=== PATIENT | male | born 1995 | race Caucasian/White ===

== ENCOUNTER 2019-10-20 23:18 | Emergency (ER) | payer SELFPAY ==
[~2019-10-20] VITALS: Ht 170.2 cm; Wt 67.1 kg
[2019-10-20 23:20] VITALS: BP 150/90
--- NOTE | 2019-10-20 23:23 | NUR ---
TO LOBBY A/W BED AMBULATORY
--- NOTE | 2019-10-21 | NUR ---
PT TAKEN TO BED 8
--- NOTE | 2019-10-21 00:10 | NUR ---
24 YO MALE CO DIZZINESS, NAUSEA AND RAPID HEART RATE TODAY AFTER WAKING FROM A NAP. 3 LEAD EKG SHOWS TACHYCARDIA BETWEEN 120-130. PT STATED THAT HE HAD A RULL BULL AND A COUPLE BEERS TODAY. NO ABNORMAL HEART SOUNDS ON AUSCULTATION.
[2019-10-21] MEDS ORDERED: NACL 0.9% 1,000 ML IV ONE (00:25)
[2019-10-21 01:39] VITALS: BP 150/90
--- NOTE | 2019-10-21 01:40 | NUR ---
Patient discharged with v/s stable. Written and verbal after care instructions given and explained. Patient verbalized understanding. Ambulatory with steady gait. All questions addressed prior to discharge. Advised to follow up with PMD.
--- NOTE | 2019-10-22 10:37 | NUR ---
Late entry. Confirmed with RN that 0.9NS IV completed at 0135
== END 2019-10-21 01:40 | disposition home or self-care (01) ==
LOC: MED 23:18
DX: R00.0 Tachycardia, unspecified (principal); R03.0 Elevated blood-pressure reading, without diagnosis of hypertension; J45.909 Unspecified asthma, uncomplicated; Z88.0 Allergy status to penicillin
CPT/HCPCS: 93005; 99283; J7030

== ENCOUNTER 2019-10-21 22:13 | Emergency (ER) | payer SELFPAY ==
[~2019-10-21] VITALS: Ht 170.2 cm; Wt 67.1 kg
[2019-10-21 22:25] VITALS: BP 144/82
--- NOTE | 2019-10-21 22:27 | NUR ---
TO LOBBY A/W BED AMBULATORY
--- NOTE | 2019-10-21 22:39 | NUR ---
PT AMBULATED TO BED 5.
--- NOTE | 2019-10-21 22:40 | NUR ---
PT 24 Y/O MALE BIB SELF FOR C/O 4/10 STERNAL CHEST PAIN X 1 DAY. NON RADIATING, "FEELS LIKE A PRESSURE." PT ALSO HAS C/O DIARRHEA. "JOHANNA BEEN HAVING IT ALL DAY, EVERYTIME I EAT I HAVE TO GO TO THE BATHROOM." PT RESPIRATIONS ARE EVEN AND UNLABORED. AFEBRILE. SKIN IS WARM AND DRY TO TOUCH. BS PRESENT X 4. ABD SOFT, FLAT, AND NON TENDER. PT ON MONITOR. BED LOCKED AND IN LOWEST POSITION. MEDHX: ASTHMA ALLERGIES: PCN
--- NOTE | 2019-10-21 22:45 | NUR ---
IV PLACED IN L AC 20G. LABS DRAWN.
--- NOTE | 2019-10-21 22:49 | NUR ---
EKG DONE AT BEDSIDE BY CONNOR GREWAL.
[2019-10-21] MEDS ORDERED: NACL 0.9% 1,000 ML IV ONE (22:50)
--- NOTE | 2019-10-21 22:52 | NUR ---
XRAY AT BEDSIDE.
--- NOTE | 2019-10-21 22:55 | NUR ---
DR US AT BEDSIDE.
--- NOTE | 2019-10-21 22:55 | NUR ---
PT IVF NS 0.9% BOLUS STARTED. IV SITE IS PATENT. NO SWELLING OR C/O PAIN AT THIS TIME. IVF RUNNING CONTINOUSLY.
[2019-10-21 23:05] LABS: BASOPHILS % (AUTO) 0.6 % (0.0-2.0); EOSINOPHILS # (AUTO) 0.1 K/uL (0-0.4); EOSINOPHILS % (AUTO) 1.7 % (0.0-4.0); HEMATOCRIT 49.1 % (36-52); LYMPHOCYTES # (AUTO) 1.7 K/uL (2.0-11.5); LYMPHOCYTES % (AUTO) 25.2 % (20.5-51.1); MEAN CORPUSCULAR HEMOGLOBIN 31 pg (27-31); MEAN CORPUSCULAR HGB CONC 35 g/dL (33-37); MEAN CORPUSCULAR VOLUME 88.5 fL (80-94); MONOCYTES # (AUTO) 0.5 K/uL (0.8-1.0); MONOCYTES % (AUTO) 7.2 % (1.7-9.3); NEUTROPHILS # (AUTO) 4.5 K/uL (1.8-7.7); NEUTROPHILS % (AUTO) 65.3 % (42.2-75.2); PLATELET COUNT (AUTO) 209 K/uL (140-450); RED BLOOD CELL COUNT(AUTO) 5.55 MIL/uL (4.20-6.10); RED CELL DISTRIBUTION WIDTH 13.2 % (11.6-13.7); WHITE BLOOD COUNT (AUTO) 6.9 K/uL (4.8-10.8)
[2019-10-21 23:19] LABS: ALBUMIN 4.7 g/dL (3.4-5.0); ANION GAP 16.4 (8-16); CARBON DIOXIDE 26.3 mmol/L (21-32); POTASSIUM 3.7 mmol/L (3.5-5.1); TOTAL BILIRUBIN 0.6 mg/dL (0.0-1.0)
[2019-10-21 23:26] LABS: PROTHROMBIN TIME 10.1 secs (10.8-13.4)
--- NOTE | 2019-10-22 00:15 | NUR ---
PT IVF FINISHED. NO SWELLING OR C/O PAIN AT IV SITE. PT AMBULATED TO RESTROOM WITH STEADY GAIT. PT STATES PAIN IS 0/10. "I FEEL A LOT BETTER."
[2019-10-22 01:35] VITALS: BP 117/86
== END 2019-10-22 01:35 | disposition home or self-care (01) ==
LOC: MED 22:13
DX: R07.89 Other chest pain (principal); R00.2 Palpitations; J45.909 Unspecified asthma, uncomplicated; Z88.0 Allergy status to penicillin
CPT/HCPCS: 36415; 71045; 80053; 83880; 84484; 85025; 85610; 85730; 93005; 96360; 99284; J7030; Q0092

== ENCOUNTER 2019-11-29 16:42 | Emergency (ER) | payer SELFPAY ==
[~2019-11-29] VITALS: Ht 172.7 cm; Wt 69.4 kg
[2019-11-29 17:01] VITALS: BP 134/80
[2019-11-29] MEDS ORDERED: ALUMINUM HYD/MAG/SIMETHICONE 30 ML UDC PO ONE (17:20)
[2019-11-29] MEDS ORDERED: LIDOCAINE VISCOUS 2% 20 ML UDC PO ONE (17:20)
[2019-11-29] MEDS ORDERED: DICYCLOMINE HCL LIQUID 10 MG/5 ML UDC PO ONE (17:20)
[2019-11-29 17:54] VITALS: BP 134/80
== END 2019-11-29 17:54 | disposition home or self-care (01) ==
LOC: MED 16:42
DX: K21.9 Gastro-esophageal reflux disease without esophagitis (principal); J45.909 Unspecified asthma, uncomplicated; F17.200 Nicotine dependence, unspecified, uncomplicated; F12.90 Cannabis use, unspecified, uncomplicated; Z98.890 Other specified postprocedural states; Z88.0 Allergy status to penicillin
CPT/HCPCS: 99283

== ENCOUNTER 2019-11-30 15:39 | Emergency (ER) | payer SELFPAY ==
[~2019-11-30] VITALS: Ht 170.2 cm; Wt 69.4 kg
--- NOTE | 2019-11-30 15:50 | NUR ---
PT AMBULATED TO ER BED 06
[2019-11-30 15:52] VITALS: BP 140/90
--- NOTE | 2019-11-30 15:52 | NUR ---
SEEN IN ED YESTERDAY -- DX WITH GERD AND CAN NOT RECALL RX. PT REPORTING SUDDEN ONSET LIGHT HEADENESS WITH RIGHT ARM TINGLING. PT APPEARS ANXIOUS. PT AWAKE , ALERT , AFIBRILE, AMBULATORY WITH STEADY GAIT. SCE , CBS, FLAT SOFT NABS NONTENDER. PMHX--ASTHMA NKDA
--- NOTE | 2019-11-30 15:52 | NUR ---
dr johnson at bedside evalauting pt.
[2019-11-30] MEDS ORDERED: LORazepam 1 MG TAB PO ONE (15:55)
--- NOTE | 2019-11-30 16:01 | NUR ---
xray at bedside.
[2019-11-30] MEDS ORDERED: NITROGLYCERIN 0.4 MG TAB SL ONE (16:15)
[2019-11-30] MEDS ORDERED: ASPIRIN 325 MG TAB PO ONE (16:15)
[2019-11-30 16:23] LABS: BASOPHILS % (AUTO) 0.2 % (0.0-2.0); EOSINOPHILS % (AUTO) 0.4 % (0.0-4.0); LYMPHOCYTES % (AUTO) 30.6 % (20.5-51.1); MEAN CORPUSCULAR HEMOGLOBIN 30 pg (27-31); MEAN CORPUSCULAR HGB CONC 35 g/dL (33-37); MEAN CORPUSCULAR VOLUME 87.4 fL (80-94); MONOCYTES # (AUTO) 0.5 K/uL (0.8-1.0); MONOCYTES % (AUTO) 7.4 % (1.7-9.3); NEUTROPHILS # (AUTO) 4.1 K/uL (1.8-7.7); NEUTROPHILS % (AUTO) 61.4 % (42.2-75.2); PLATELET COUNT (AUTO) 194 K/uL (140-450); RED BLOOD CELL COUNT(AUTO) 5.26 MIL/uL (4.20-6.10); RED CELL DISTRIBUTION WIDTH 12.7 % (11.6-13.7); WHITE BLOOD COUNT (AUTO) 6.7 K/uL (4.8-10.8)
[2019-11-30 16:43] LABS: ALBUMIN 4.4 g/dL (3.4-5.0); ANION GAP 11.9 (8-16); CARBON DIOXIDE 28.3 mmol/L (21-32); CREATININE 1.2 mg/dL (0.6-1.3); POTASSIUM 4.2 mmol/L (3.5-5.1); TOTAL BILIRUBIN 0.5 mg/dL (0.0-1.0)
--- NOTE | 2019-11-30 16:44 | NUR ---
PT COMFORTABLE IN BED , STABLE VS ,SIDE RAILS UP X1 AND LOCK.
[2019-11-30 16:48] LABS: BARBITURATE, URINE NEGATIVE ng/ml (NEG <=200); BENZODIAZEPINE, URINE NEGATIVE ng/mL (NEG <=200); CANNABINOID, URINE NEGATIVE ng/mL (NEG <=50); COCAINE, URINE NEGATIVE ng/mL (NEG <=300); OPIATE, URINE NEGATIVE ng/mL (NEG <=2000); PHENCYCLIDINE SCREEN,URINE NEGATIVE ng/mL (NEG <=25)
[2019-11-30 16:54] LABS: APPEARANCE,URINE CLEAR (CLEAR); BILIRUBIN,URINE NEGATIVE (NEGATIVE); BLOOD, URINE NEGATIVE (NEGATIVE); COLOR,URINE YELLOW (YELLOW); LEUKOCYTE ESTERASE ,URINE NEGATIVE (NEGATIVE); NITRITE, URINE NEGATIVE (NEGATIVE); PH,URINE 7.5 (5.0-9.0); UGLUCOSE NEGATIVE (NEGATIVE)
--- NOTE | 2019-11-30 17:28 | NUR ---
PT COMFORTABLE IN BED , GAVE URINAL STATED HE WANTS TO VOID.VS STABLE.
[2019-11-30 17:37] VITALS: BP 117/77
== END 2019-11-30 17:38 | disposition home or self-care (01) ==
LOC: MED 15:39
DX: R07.89 Other chest pain (principal); R10.9 Unspecified abdominal pain; F41.9 Anxiety disorder, unspecified; J45.909 Unspecified asthma, uncomplicated; F17.200 Nicotine dependence, unspecified, uncomplicated; K21.9 Gastro-esophageal reflux disease without esophagitis; F12.90 Cannabis use, unspecified, uncomplicated; Z98.890 Other specified postprocedural states; Z88.0 Allergy status to penicillin
CPT/HCPCS: 36415; 71045; 80053; 80305; 81003; 84484; 85025; 87804; 93005; 99285; Q0092

== ENCOUNTER 2020-04-29 21:19 | Emergency (ER) | payer MEDICAID ==
[~2020-04-29] VITALS: Ht 170.2 cm; Wt 65.8 kg
[2020-04-29 21:47] VITALS: BP 122/75
--- NOTE | 2020-04-29 21:49 | NUR ---
triaged and waiting in lobby.
--- NOTE | 2020-04-29 22:35 | NUR ---
no nursing interventions needed
[2020-04-29 22:38] VITALS: BP 122/75
--- NOTE | 2020-04-29 22:38 | NUR ---
Patient discharged with v/s stable. Written and verbal after care instructions given and explained. Patient alert, oriented and verbalized understanding of instructions. Ambulatory with steady gait. All questions addressed prior to discharge. ID band removed. Patient advised to follow up with PMD. Rx of prednisone, azithromycin, omeprazole given. Patient educated on indication of medication including possible reaction and side effects. Opportunity to ask questions provided and answered.
== END 2020-04-29 22:38 | disposition home or self-care (01) ==
LOC: MED 21:19
DX: J02.9 Acute pharyngitis, unspecified (principal); J45.909 Unspecified asthma, uncomplicated; K21.9 Gastro-esophageal reflux disease without esophagitis; Z88.0 Allergy status to penicillin
CPT/HCPCS: 99283

== ENCOUNTER 2020-06-11 14:50 | Emergency (ER) | payer MEDICAID ==
[~2020-06-11] VITALS: Ht 170.2 cm; Wt 65.8 kg
[2020-06-11 15:00] VITALS: BP 140/67
[2020-06-11 15:48] VITALS: BP 140/67
== END 2020-06-11 15:44 | disposition home or self-care (01) ==
LOC: MED 14:50
DX: J02.9 Acute pharyngitis, unspecified (principal); J45.909 Unspecified asthma, uncomplicated; K21.9 Gastro-esophageal reflux disease without esophagitis; Z88.0 Allergy status to penicillin; Z20.828 Contact with and (suspected) exposure to other viral communicable diseases
CPT/HCPCS: 99283; U0003

== ENCOUNTER 2020-07-20 01:25 | Emergency (ER) | payer MEDICAID ==
[~2020-07-20] VITALS: Ht 170.2 cm; Wt 69.9 kg
[2020-07-20 01:30] VITALS: BP 132/85
--- NOTE | 2020-07-20 01:33 | NUR ---
TO LOBBY A/W BED AMBULATORY
--- NOTE | 2020-07-20 03:05 | NUR ---
PT AMBULATED TO BED 12
--- NOTE | 2020-07-20 03:13 | NUR ---
WILEY PEREYRA AT BEDSIDE FOR EVAULATION.
--- NOTE | 2020-07-20 03:15 | NUR ---
SEE COMPLETE ASSESSMENT
[2020-07-20] MEDS ORDERED: DICYCLOMINE HCL LIQUID 20 MG, ALUMINUM HYD/MAG/SIMETHICONE 30 ML, LIDOCAINE VISCOUS 2% ... PO ONE ×3 (03:20)
[2020-07-20] MEDS ORDERED: ONDANSETRON 4 MG ODT PO ONE (03:20)
[2020-07-20] MEDS ORDERED: LIDOCAINE VISCOUS 2% 20 ML UDC ONE (03:32)
[2020-07-20] MEDS ORDERED: ALUMINUM HYD/MAG/SIMETHICONE 30 ML UDC ONE (03:32)
[2020-07-20] MEDS ORDERED: DICYCLOMINE HCL LIQUID 10 MG/5 ML UDC ONE (03:33)
--- NOTE | 2020-07-20 04:10 | NUR ---
Patient discharged with v/s stable. Written and verbal after care instructions given and explained. Patient alert, oriented and verbalized understanding of instructions. Ambulatory with steady gait. All questions addressed prior to discharge. ID band removed. Patient advised to follow up with PMD. Rx of PRILOSEC AND ZOFRAN given. Patient educated on indication of medication including possible reaction and side effects. Opportunity to ask questions provided and answered.
== END 2020-07-20 04:03 | disposition home or self-care (01) ==
LOC: MED 01:25
DX: R07.89 Other chest pain (principal); R11.0 Nausea; K21.9 Gastro-esophageal reflux disease without esophagitis; J45.909 Unspecified asthma, uncomplicated; Z88.0 Allergy status to penicillin; Z98.890 Other specified postprocedural states
CPT/HCPCS: 93005; 99283; Q0162

== ENCOUNTER 2020-08-02 11:52 | Emergency (ER) | payer MEDICAID, SELFPAY ==
[~2020-08-02] VITALS: Ht 170.2 cm; Wt 65.8 kg
[2020-08-02 12:13] VITALS: BP 117/81
[2020-08-02 14:12] LABS: BASOPHILS % (AUTO) 0.4 % (0.0-2.0); EOSINOPHILS # (AUTO) 0.1 K/uL (0-0.4); EOSINOPHILS % (AUTO) 1.8 % (0.0-4.0); HEMOGLOBIN 17.3 g/dL (12.0-18.0); LYMPHOCYTES % (AUTO) 30.5 % (20.5-51.1); MEAN CORPUSCULAR HEMOGLOBIN 30 pg (27-31); MEAN CORPUSCULAR HGB CONC 35 g/dL (33-37); MEAN CORPUSCULAR VOLUME 87.1 fL (80-94); MONOCYTES # (AUTO) 0.4 K/uL (0.8-1.0); MONOCYTES % (AUTO) 6.8 % (1.7-9.3); NEUTROPHILS % (AUTO) 60.5 % (42.2-75.2); PLATELET COUNT (AUTO) 203 K/uL (140-450); RED BLOOD CELL COUNT(AUTO) 5.74 MIL/uL (4.20-6.10); RED CELL DISTRIBUTION WIDTH 12.9 % (11.6-13.7); WHITE BLOOD COUNT (AUTO) 6.5 K/uL (4.8-10.8)
[2020-08-02 14:25] LABS: ALBUMIN 4.7 g/dL (3.4-5.0); ANION GAP 12.2 (8-16); CARBON DIOXIDE 28.3 mmol/L (21-32); POTASSIUM 4.5 mmol/L (3.5-5.1); TOTAL BILIRUBIN 0.6 mg/dL (0.0-1.0)
[2020-08-02 14:56] VITALS: BP 117/81
== END 2020-08-02 14:56 | disposition home or self-care (01) ==
LOC: MED 11:52
DX: R07.89 Other chest pain (principal); F41.9 Anxiety disorder, unspecified; K21.9 Gastro-esophageal reflux disease without esophagitis; J45.909 Unspecified asthma, uncomplicated; Z98.890 Other specified postprocedural states; Z88.0 Allergy status to penicillin
CPT/HCPCS: 36415; 71045; 80053; 83690; 84484; 85025; 93005; 99285

== ENCOUNTER 2021-12-01 02:51 | Emergency (ER) | payer MEDICAID ==
[~2021-12-01] VITALS: Ht 172.7 cm; Wt 72.6 kg
[2021-12-01 02:57] VITALS: BP 146/85
--- NOTE | 2021-12-01 03:08 | NUR ---
Patient being evaluated by physician at bedside.
[2021-12-01] MEDS ORDERED: KETOROLAC 60 MG/2 ML VIAL IM ONE (03:10)
--- NOTE | 2021-12-01 03:17 | NUR ---
26 y/o male presents to ed with c/o of left shoulder pain upon waking up today. pain 10/10, sharp and constant. does not radiate, no swelling, denies trauma, f/n/v, chest pain and sob. pt has full rom. pmh: hernia, asthma, gerd meds: none pcn allergy
[2021-12-01] MEDS ORDERED: IBUP-2213 PO ×2 (03:19→03:43)
[2021-12-01] MEDS ORDERED: ACET-8386 PO ×2 (03:19→03:43)
--- NOTE | 2021-12-01 03:44 | NUR ---
Patient discharged with v/s stable. Written and verbal after care instructions given and explained. Patient alert, oriented and verbalized understanding of instructions. Ambulatory with steady gait. All questions addressed prior to discharge. ID band removed. Patient advised to follow up with PMD. Rx of NORCO 5/325 & IBUPROFEN given. Patient educated on indication of medication including possible reaction and side effects. Opportunity to ask questions provided and answered.
== END 2021-12-01 03:44 | disposition home or self-care (01) ==
LOC: MED 02:51
DX: M25.512 Pain in left shoulder (principal); M54.6 Pain in thoracic spine; J45.909 Unspecified asthma, uncomplicated; K21.9 Gastro-esophageal reflux disease without esophagitis; Z98.890 Other specified postprocedural states; Z88.0 Allergy status to penicillin
CPT/HCPCS: 96372; 99283; J1885

== ENCOUNTER 2022-05-31 08:01 | Emergency (ER) | payer MEDICAID ==
[~2022-05-31] VITALS: Ht 172.7 cm; Wt 76.8 kg
[~2022-05-31 08:01] MED LIST: ACET-8386 PO; IBUP-2213 PO
[2022-05-31 08:17] VITALS: BP 134/77
--- NOTE | 2022-05-31 08:20 | NUR ---
Katherine kohler in [facility] - 05/31/22 at 0821 by [email or web address] PATIENT AMBULATED TO BED 9.
--- NOTE | 2022-05-31 08:21 | NUR ---
PATIENT AMBULATED TO BED 3.
--- NOTE | 2022-05-31 08:24 | NUR ---
received in [facility] for left ear pain 05/23 today. denies trauma, drainage, redness, headache,fever. aao x4. resp even and nonlabored. vss. ambulatory
[2022-05-31] MEDS ORDERED: KETOROLAC 60 MG/2 ML VIAL IM ONE (08:40)
[2022-05-31] MEDS ORDERED: PSEU120T22 PO (09:04)
[2022-05-31] MEDS ORDERED: IBUP-2213 PO (09:04)
[2022-05-31 09:29] VITALS: BP 128/70
== END 2022-05-31 09:29 | disposition home or self-care (01) ==
LOC: MED 08:01
DX: H92.02 Otalgia, left ear (principal); K21.9 Gastro-esophageal reflux disease without esophagitis; J45.909 Unspecified asthma, uncomplicated; Z72.89 Other problems related to lifestyle; Z98.890 Other specified postprocedural states
CPT/HCPCS: 96372; 99283; J1885

== ENCOUNTER 2022-11-03 21:34 | Emergency (ER) | payer MEDICAID ==
[~2022-11-03] VITALS: Ht 172.7 cm; Wt 72.6 kg
[~2022-11-03 21:34] MED LIST changes: -ACET-8386 PO; +ACET-8905 PO; +PSEU120T22 PO
[2022-11-03 22:11] VITALS: BP 134/72
--- NOTE | 2022-11-03 22:16 | NUR ---
TO LOBBY FOLLOWING TRIAGE
== END 2022-11-03 23:58 | disposition left against medical advice (07) ==
LOC: MED 21:34
DX: R68.83 Chills (without fever) (principal); R51.9 Headache, unspecified; Z53.21 Procedure and treatment not carried out due to patient leaving prior to being seen by health care provider
CPT/HCPCS: 99281

== ENCOUNTER 2022-11-05 12:09 | Emergency (ER) | payer MEDICAID ==
[~2022-11-05] VITALS: Ht 172.7 cm; Wt 73.0 kg
[2022-11-05 12:14] VITALS: BP 139/79
--- NOTE | 2022-11-05 12:30 | NUR ---
27 Y/O MALE BIB SELF C/O SORE THROAT, FEVER 101 AT HOME, CHILLS, BODY ACHESX3 DAYS, TOOK IBUPROFEN AT 1045 FOR PAIN AND FEVER WITH MODERATE EFFECT. DENIES ANY COUGH, RUNNY NOSE ALLERGY: PCN PMH: DENIES
[2022-11-05] MEDS ORDERED: LIDO15SO PO (12:40)
[2022-11-05] MEDS ORDERED: AZIT250T4 PO (12:40)
[2022-11-05] MEDS ORDERED: IBUP-2213 PO (12:40)
--- NOTE | 2022-11-05 12:51 | NUR ---
Patient discharged with v/s stable. Written and verbal after care instructions ABOUT STREP THROAT given and explained. Patient alert, oriented and verbalized understanding of instructions. Ambulatory with steady gait. All questions addressed prior to discharge. ID band removed. Patient advised to follow up with PMD. Rx of LIDOCAINE VISCOUS, ZITHROMAX, MOTRIN given. Patient educated on indication of medication including possible reaction and side effects. Opportunity to ask questions provided and answered.
== END 2022-11-05 12:51 | disposition home or self-care (01) ==
LOC: MED 12:09
DX: J02.0 Streptococcal pharyngitis (principal); R51.9 Headache, unspecified; J45.909 Unspecified asthma, uncomplicated; K21.9 Gastro-esophageal reflux disease without esophagitis; Z79.899 Other long term (current) drug therapy; Z79.1 Long term (current) use of non-steroidal anti-inflammatories (NSAID); Z79.2 Long term (current) use of antibiotics; Z79.891 Long term (current) use of opiate analgesic; Z88.0 Allergy status to penicillin
CPT/HCPCS: 99283